=== PATIENT | female | born 1995 | race Caucasian/White ===

== ENCOUNTER 2020-12-18 07:52 | Outpatient (CLI) | payer MEDICAID, OTHER ==
[2020-12-19 07:38] LABS: SARS-CoV-2 PCR by NAA Not Detected (NotDetected)
== END 2020-12-18 07:53 | disposition home or self-care (01) ==
LOC: CSHLAB 07:52
PROVIDERS: ATTEND Emergency Medicine
DX: Z20.822 Contact with and (suspected) exposure to COVID-19 (principal)
CPT/HCPCS: 87635; U0003; U0005

== ENCOUNTER 2020-12-21 05:42 | Inpatient (IN) | payer OTHER ==
[~2020-12-21 05:42] MED LIST: Acetaminophen 500 MG TAB PO PRN; Butorphanol Tartrate 1 MG/ML VIAL SLOW IVP PRN; Carboprost 250 MCG/ML AMP IM PRN; Docusate 100 MG CAP PO PRN; Ibuprofen 800 MG TAB PO PRN; Lidocaine 1% (PF) 30 ML VIAL SC PRN; Methylergonovine 0.2 MG/ML VIAL IM PRN; Misoprostol 200 MCG TAB PR PRN; NS / Oxytocin 40 units/1000ml 1,000 ML IV PRN; Ondansetron PF 4 MG/2 ML Vial IVP PRN; Promethazine HCl 25 MG/ML VIAL IM PRN; hydrALAZINE 20 MG/ML VIAL SLOW IVP PRN
[2020-12-21] MEDS ORDERED: Penicillin G Potassium 5 MILL.UNITS in Sodium Chloride 0.9% 100 ML IVPB SCH (05:45)
[2020-12-21] MEDS: Lactated Ringer's 1,000 ML IV SCH ×2 (05:55→11:49)
[2020-12-21] MEDS ORDERED: NS w/ Oxytocin 30 units 500 ML ONE ×2 (06:25→15:34)
[2020-12-21 06:37] LABS: Hemoglobin 10.9 g/dL (12.0-15.5); Mean Corpuscular Hemoglobin 28.2 pg (27.0-33.0); Mean Corpuscular Volume 85.3 fl (81.6-98.3); Mean Platelet Volume 10.8 fl (7.4-10.4); Platelet Count 292 10x3/uL (150-450); RBC Distribution Width 13.8 % (11.5-14.5); Red Blood Cell (RBC) Count 3.87 10x6/uL (3.90-5.03); White Blood Cell (WBC) Count 9.8 10x3/uL (3.5-10.5)
[2020-12-21 06:38] VITALS: BMI 38.2
[2020-12-21 06:56] LABS: Hep B Surf Ag Non-Reactive S/CO (NonReactive)
[2020-12-21 06:57] LABS: Syphilis Antibody Nonreactive (Nonreactive); Syphilis Antibody Index 0.02 S/CO (<1.00 Non-Reactive)
[2020-12-21 06:58] LABS: HBSAg Index 0.14 S/CO (0-0.99)
[2020-12-21] MEDS ORDERED: Fentanyl 4 mcg/Bup 0.1% Cadd 100 ML ONE (11:07)
[2020-12-21] MEDS: Penicillin G 2.5 MILL.units 2.5 MILL.UNITS in Premix Bag 1 BAG IVPB SCH ×3 (11:50→15:48)
[2020-12-21] MEDS ORDERED: Naloxone HCl 0.4 mg/ml Vial IVP PRN ×2 (14:20)
[2020-12-21] MEDS ORDERED: Ondansetron PF 4 MG/2 ML Vial IVP PRN (14:20)
[2020-12-21] MEDS ORDERED: Promethazine HCl 25 MG/ML VIAL IM PRN (14:20)
[2020-12-21] MEDS ORDERED: diphenhydrAMINE 50 MG/ML VIAL IVP PRN (14:20)
[2020-12-21] MEDS ORDERED: Lactated Ringer's 500 ML IV PRN (14:20)
[2020-12-21] MEDS ORDERED: Acetaminophen 325 MG TAB PO PRN (14:20)
[2020-12-21] MEDS ORDERED: Communication Order-Pharmacy FS SCH (14:30)
[2020-12-21] MEDS ORDERED: Fentanyl 4 mcg/Bupivacaine 0.1% Cassette 100 ML EPIDURAL SCH (14:30)
[2020-12-21] MEDS ORDERED: Hydrocerin (Eucerin) Cream 120 gm Jar TOP PRN (14:59)
[2020-12-21] MEDS ORDERED: ePHEDrine Sulfate 50 MG/10 ML VIAL SLOW IVP PRN (15:00)
[2020-12-21] MEDS ORDERED: Adacel (T-DAP) 0.5 ML SYRINGE IM ONE (15:17)
[2020-12-21] MEDS ORDERED: Preparation H Ointment 28 GM TUBE PR PRN (15:56)
[2020-12-21] MEDS ORDERED: diphenhydrAMINE 25 MG CAP PO PRN (15:56)
[2020-12-21] MEDS ORDERED: Lanolin Ointment 7 GM TUBE TOP PRN (15:56)
[2020-12-21] MEDS ORDERED: Bisacodyl 10 MG SUPP PR PRN (15:56)
[2020-12-21] MEDS ORDERED: Milk Of Magnesia 30 ML UDCUP PO PRN (15:56)
[2020-12-21] MEDS ORDERED: Benzocaine-Menthol 82.5 ML CAN TOP PRN (15:56)
[2020-12-21] MEDS ORDERED: NS w/ Oxytocin 30 units 500 ML IV SCH (16:15)
[2020-12-21] MEDS: Ibuprofen 800 MG TAB PO SCH (17:02)
[2020-12-21] MEDS: Ferrous Sulfate 325 MG TAB PO SCH (17:27)
[2020-12-21] MEDS ORDERED: Bupivacaine 0.25% HCL 30 ML VIAL ONE (19:35)
[2020-12-22] MEDS: Ibuprofen 800 MG TAB PO SCH ×3 (03:13→20:45)
[2020-12-22] MEDS: Docusate Calcium (SURFAK) 240 MG CAP PO SCH ×3 (03:15→20:45)
[2020-12-22] MEDS: Lactated Ringer's 1,000 ML IV SCH ×3 (08:32→22:04)
[2020-12-22] MEDS: Ferrous Sulfate 325 MG TAB PO SCH ×2 (08:32→16:38)
[2020-12-22] MEDS: Prenatal Vitamin 1 TAB PO SCH (09:54)
[2020-12-23] MEDS: Ibuprofen 800 MG TAB PO SCH (05:17)
[2020-12-23] MEDS: Lactated Ringer's 1,000 ML IV SCH ×2 (06:18→09:01)
[2020-12-23] MEDS: Prenatal Vitamin 1 TAB PO SCH (08:49)
[2020-12-23] MEDS: Ferrous Sulfate 325 MG TAB PO SCH (08:49)
[2020-12-23] MEDS: Docusate Calcium (SURFAK) 240 MG CAP PO SCH (08:49)
[2020-12-23 09:25] VITALS: BP 109/64; TEMP 98.7
== END 2020-12-23 12:10 | disposition home or self-care (01) | DRG 807 ==
LOC: CSHLD/OP 05:42 → CSHLD 05:43 → CSHPP 17:46
PROVIDERS: ADMIT Family Medicine; ATTEND Family Medicine
PROC: 10E0XZZ Delivery of Products of Conception, External Approach (ICD-10-PCS; principal; 2020-12-22)
PROC: 3E033VJ Introduction of Other Hormone into Peripheral Vein, Percutaneous Approach (ICD-10-PCS; 2020-12-22)
DX: O99.824 Streptococcus B carrier state complicating childbirth (principal); Z37.0 Single live birth; Z20.822 Contact with and (suspected) exposure to COVID-19; O99.344 Other mental disorders complicating childbirth; F32.9 Major depressive disorder, single episode, unspecified; F41.9 Anxiety disorder, unspecified; O40.3XX0 Polyhydramnios, third trimester, not applicable or unspecified; J30.2 Other seasonal allergic rhinitis; Z3A.39 39 weeks gestation of pregnancy; Z90.49 Acquired absence of other specified parts of digestive tract
CPT/HCPCS: 51702; 85027; 86780; 86850; 86900; 86901; 87340; J2540; J2590; J3490; S0020